=== PATIENT | male | born 1985 | race Asian ===

== ENCOUNTER 2017-04-08 03:33 | Emergency (ER) | payer OTHER ==
[2017-04-08] MEDS ORDERED: KETOROLAC TROMETHAMINE 30 MG/ML VIAL IV STA (04:42)
[2017-04-08 05:01] LABS: BASO % 0.1 %; BASO ABS # 0.02 K/uL (0-0.2); COMPLETE YES; EOS % 2.3 %; HEMATOCRIT 47.1 % (42-52); IG% 0.3 %; LYMPH % 14.1 %; LYMPH ABS # 2.42 K/uL (1.2-3.4); MEAN CELL VOLUME 93.5 fL (80-100); MEAN CORPUSCULAR HEMOGLOBIN 30.8 pg (25-34); MEAN CORPUSCULAR HGB CONC 32.9 g/dl (32-36); MEAN PLATELET VOLUME 9.2 fL (7.4-10.4); MONO % 5.4 %; NEUT % 77.8 %; PLATELET COUNT 251 K/uL (130-400); RED BLOOD COUNT 5.04 M/uL (4.7-6.1); WHITE BLOOD COUNT 17.17 K/uL (4.8-10.8)
[2017-04-08] MEDS ORDERED: MULT-506 PO (05:01)
[2017-04-08 05:19] LABS: ALT/SGPT 22 U/L (12-78); AST/SGOT 16 U/L (15-37); BLOOD UREA NITROGEN 23 mg/dl (7-18); BUN/CREATININE RATIO 21.1 (10-20); CALCIUM 8.7 mg/dl (8.5-10.1); CARBON DIOXIDE 26 mmol/L (21-32); CHLORIDE 105 mmol/L (98-107); GLUCOSE 80 mg/dl (70-99); POTASSIUM 3.5 mmol/L (3.5-5.1); SODIUM 138 mmol/L (136-145)
[2017-04-08 05:21] LABS: ALB/GLOB RATIO 1.5 (0.9-2); ALKALINE PHOSPHATASE 61 U/L (45-117)
[2017-04-08] MEDS ORDERED: SODIUM CHLORIDE 0.9% 1000ML 1,000 ML IV STA (05:56)
[2017-04-08 06:09] VITALS: O2SAT 96
[2017-04-08 06:10] VITALS: TEMP 37.1
--- NOTE | 2017-04-08 06:17 | EMERGENCY ROOM VISIT NOTE ---
History First contact with patient: 04:42 Chief Complaint: SHORTNESS OF BREATH Stated Complaint: HARD TO BREATHE PNEUMOTHORAX SYMPTOM, COLD HANDS A History of Present Illness The patient is a 31 year old male who presents to the Emergency Room with complaints of right-sided chest pain which began one hour ago. The patient states that he woke up with a sudden onset of chest pain. He rates the discomfort an 8/10. He reports associated shortness of breath. The pain is worse with a deep breath or laying down. She is concerned because his brother had a pneumothorax. He is from [place] and moved here 1 month ago. He states that he started exercising 2 days ago and has had some muscle soreness. He denies any cardiac history. He denies any recent illnesses, fevers/chills, nausea/vomiting or abdominal pain. Review of Systems A complete 10 point review of systems was reviewed with the patient with pertinent positives and negatives as per history of present illness. All else were negative. Current/Historical Medications Scheduled Azithromycin (Zithromax Z-Richard), 0 PO UD Multivitamin (Multivitamin), 1 TAB PO DAILY Physical Exam Vital Signs Date Time Temp Pulse Resp B/P (MAP) Pulse Ox O2 Delivery O2 Flow Rate FiO2 04/08/17 07:14 96 16 122/60 04/08/17 06:10 37.1 04/08/17 06:09 94 16 121/63 96 Room Air 04/08/17 04:20 93 Physical Exam VITALS: Vitals are noted on the nurse's note and reviewed by myself. Vital signs stable. GENERAL: This is a 31-year-old male, in no acute distress, nondiaphoretic, well- developed well-nourished. SKIN: No rashes. HEENT: Normocephalic. PERRLA. Tympanic membranes pearly salas bilaterally. Mucous membranes moist. Neck is supple without nuchal rigidity. HEART: Regular rate and rhythm without murmurs gallops or rubs. LUNGS: Clear to auscultation bilaterally without wheezes, rales or rhonchi. No retractions or accessory muscle use. CHEST: No chest wall tenderness to palpation. ABDOMEN: Positive bowel sounds x 4. Soft, no tenderness to palpation. MUSCULOSKELETAL: Full range of motion and strength 5/5 throughout. NEURO: Patient was alert and oriented to person place and time. Medical Decision & Procedures ER Provider Diagnostic Interpretation: CHEST ONE VIEW PORTABLE CLINICAL HISTORY: Atypical chest pain shortness of breath COMPARISON STUDY: No previous studies for comparison. FINDINGS: The heart is normal in size. There is no failure. There is no lobar consolidation. There is a nonspecific 20 x 5 mm right apical opacity. No pleural effusions are visualized. [ IMPRESSION: Nonspecific 20 x 5 mm right apical opacity. Given the age of the patient, this is likely inflammatory/postinflammatory. Short-term radiographic follow-up is advocated. Laboratory Results 04/08/17 04:00 Red Blood Count 5.04, Mean Corpuscular Volume 93.5, Mean Corpuscular Hemoglobin 30.8, Mean Corpuscular Hemoglobin Concent 32.9, Mean Platelet Volume 9.2, Neutrophils (%) (Auto) 77.8, Lymphocytes (%) (Auto) 14.1, Monocytes (%) (Auto) 5.4, Eosinophils (%) (Auto) 2.3, Basophils (%) (Auto) 0.1, Neutrophils # (Auto) 13.36, Lymphocytes # (Auto) 2.42, Monocytes # (Auto) 0.92, Eosinophils # (Auto) 0.40, Basophils # (Auto) 0.02 04/08/17 04:00 Test 04/08/17 04:00 White Blood Count 17.17 K/uL (4.8-10.8) Red Blood Count 5.04 M/uL (4.7-6.1) Hemoglobin 15.5 g/dL (14.0-18.0) Hematocrit 47.1 % (42-52) Mean Corpuscular Volume 93.5 fL (80-100) Mean Corpuscular Hemoglobin 30.8 pg (25-34) Mean Corpuscular Hemoglobin Concent 32.9 g/dl (32-36) Platelet Count 251 K/uL (130-400) Mean Platelet Volume 9.2 fL (7.4-10.4) Neutrophils (%) (Auto) 77.8 % Lymphocytes (%) (Auto) 14.1 % Monocytes (%) (Auto) 5.4 % Eosinophils (%) (Auto) 2.3 % Basophils (%) (Auto) 0.1 % Neutrophils # (Auto) 13.36 K/uL (1.4-6.5) Lymphocytes # (Auto) 2.42 K/uL (1.2-3.4) Monocytes # (Auto) 0.92 K/uL (0.11-0.59) Eosinophils # (Auto) 0.40 K/uL (0-0.5) Basophils # (Auto) 0.02 K/uL (0-0.2) RDW Standard Deviation 42.2 fL (36.4-46.3) RDW Coefficient of Variation 12.3 % (11.5-14.5) Immature Granulocyte % (Auto) 0.3 % Immature Granulocyte # (Auto) 0.05 K/uL (0.00-0.02) Anion Gap 7.0 mmol/L (3-11) Estimated GFR () 103.9 Estimated GFR (Non- 89.6 BUN/Creatinine Ratio 21.1 (10-20) Calcium Level 8.7 mg/dl (8.5-10.1) Total Bilirubin 1.2 mg/dl (0.2-1) Aspartate Amino Transf (AST/SGOT) 16 U/L (15-37) Alanine Aminotransferase (ALT/SGPT) 22 U/L (12-78) Alkaline Phosphatase 61 U/L (45-117) Total Creatine Kinase 214 U/L (39-308) Total Protein 7.7 gm/dl (6.4-8.2) Albumin 4.6 gm/dl (3.4-5.0) Globulin 3.1 gm/dl (2.5-4.0) Albumin/Globulin Ratio 1.5 (0.9-2) Medications Administered Medications (Trade) Dose Ordered Sig/Danna Route Start Time Stop Time Status Last Admin Dose Admin Ketorolac Tromethamine (Toradol Inj) 30 mg NOW STAT IV 04/08/17 04:42 04/08/17 04:43 DC 04/08/17 04:42 30 MG Sodium Chloride 1,000 ml @ 999 mls/hr Q1H1M STAT IV 04/08/17 05:56 04/08/17 06:56 DC 04/08/17 05:56 999 MLS/HR ECG Indication: chest pain Rate (beats per minute): 87 Rhythm: normal sinus Findings: no acute ischemic change, no ectopy ED Course The patient was evaluated as above. Labs were drawn and IV access was obtained. Patient was medicated with 30 mg Toradol IV and 1 L normal saline solution. Chest x-ray was performed and read by radiology as above. Patient was reevaluated and findings were discussed. Discharge instructions were reviewed with the patient. The patient verbalized understanding of my assessment and treatment plan and was discharged home in good condition. Medical Decision Differential diagnosis includes pneumonia, pneumothorax, pulmonary embolism, cholecystitis, tuberculosis, costochondritis, rhabdomyolysis, among others. The patient is a 31-year-old male who presents today complaining of right-sided chest pain and shortness of breath. Labs revealed a leukocytosis of 17,000. Bilirubin is slightly elevated, LFTs are otherwise normal. D-dimer was not elevated. Chest x-ray showed possible inflammatory finding in the right upper lobe. Given the patient's leukocytosis, he will be placed on antibiotics for this. His chest pain resolved fully after receiving Toradol. He was instructed to follow-up with his primary care provider, [facility]. Based on the patient's presentation and work up, I feel the patient is stable for outpatient treatment. The patient was educated to return to the emergency department for any worsening of their current condition or new/concerning symptoms. He will follow up with [facility]. The patient's case was reviewed with Dr. Pyle, ED attending physician, who agreed with my assessment and treatment plan. Medication Reconcilliation Current Medication List: was personally reviewed by me Blood Pressure Screening Patient's blood pressure: Normal blood pressure Impression Primary Impression: Right-sided chest pain Additional Impression: Right upper lobe consolidation Departure Information Dispostion Home / Self-Care Condition GOOD Prescriptions Azithromycin (ZITHROMAX Z-RICHARD) 250 Mg Tab 0 PO UD, #1 PKT 2 TABS DAY 1, THEN 1 TAB DAILY FOR 4 DAYS Prov: Catalina Mills ., MANDEEP 04/08/17 Referrals No Doctor, Assigned (PCP) Patient Instructions My [facility] Additional Instructions You were prescribed Zithromax to be taken as prescribed. This is an antibiotic. All antibiotics have the potential to cause diarrhea. Stop this medication and contact a medical provider if you were to develop any significant adverse side effects including: wheezing, shortness of breath, passing out, vomiting, or a diffuse rash. Always take antibiotics as directed and COMPLETE the ENTIRE course regardless of the improvement of your symptoms. For pain control, you can use the following [id number] medicines (if >12 yo): - Regular strength (325mg/tab) Tylenol (acetaminophen) 2 tabs every 4-6 hours as needed. Do not exceed 12 tablets in a 24 hour period. Avoid taking more than 4 grams (4000 mg) of Tylenol per day. This includes any other sources of acetaminophen you may take on a regular basis. - Regular strength (200 mg/tab) Advil (ibuprofen) 1-2 tabs every 4-6 hours as needed. Do not exceed a dose of 3200 mg per day. Rest and drink plenty of fluids. You should be seen by [facility] next week. You will need a repeat chest x-ray when your antibiotics are finished. Return to the emergency department with any worsening or new/concerning symptoms. Problem Qualifiers
--- NOTE | 2017-04-08 06:31 | DIAGNOSTIC IMAGING REPORT ---
CHEST ONE VIEW PORTABLE CLINICAL HISTORY: Atypical chest pain shortness of breath COMPARISON STUDY: No previous studies for comparison. FINDINGS: The heart is normal in size. There is no failure. There is no lobar consolidation. There is a nonspecific 20 x 5 mm right apical opacity. No pleural effusions are visualized. [ IMPRESSION: Nonspecific 20 x 5 mm right apical opacity. Given the age of the patient, this is likely inflammatory/postinflammatory. Short-term radiographic follow-up is advocated. Electronically signed by: Roland Rutledge M.D. 04/08/2017 6:29 AM Dictated Date/Time: 04/08/2017 6:27 AM
[2017-04-08] MEDS ORDERED: AZITTAB PO ×2 (06:55→06:56)
[2017-04-08 07:14] VITALS: BP 122/60; PULSE 96
== END 2017-04-08 07:18 | disposition home or self-care (01) ==
LOC: C.EDA 03:33
DX: J18.1 Lobar pneumonia, unspecified organism (principal); R07.89 Other chest pain; D72.829 Elevated white blood cell count, unspecified